=== PATIENT | female | born 1995 | race Caucasian/White ===

== ENCOUNTER 2017-02-17 20:01 | Emergency (ER) | payer OTHER ==
[2017-02-17 20:21] VITALS: BP 114/63; PULSE 71; TEMP 98.1; BMI 21.4
--- NOTE | 2017-02-17 21:16 | PDOC ---
History of Present Illness - General Chief Complaint: Pain Stated Complaint: PAIN Time Seen by Provider: 02/17/17 20:26 History Source: Patient Exam Limitations: No Limitations - History of Present Illness Travel History: No Initial Comments: 02/17/17 21:31 21-year-old female with no medical history presents to the emergency department complaining of left-sided pelvic pain which subsided since arrival to the emergency Department. Pain was described as 3/10 achy nonradiating intermittent discomfort. Patient denies fever, chills, nausea/vomiting, chest pain, shortness of breath, abdominal pains, flank pains, urinary symptoms: Frequency/ urgency/hesitancy, hematuria. Patient denies history of STD. Patient is currently practicing abstinence for the past 8 months. Timing/Duration: reports: gone now Past History - Past Medical History Allergies/Adverse Reactions: Allergies Allergy/AdvReac Type Severity Reaction Status Date / Time No Known Allergies Allergy Verified 02/17/17 20:20 Home Medications: Ambulatory Orders Ibuprofen [Motrin -] 400 mg PO QID PRN 11/21/15 Loratadine 10 mg PO DAILY #10 tablet 11/21/15 Asthma: Yes COPD: No - Immunization History Immunization Up to Date: Yes - Suicide/Smoking/Psychosocial Hx Smoking Status: No Smoking History: Never smoked Number of Cigarettes Smoked Daily: 0 Hx Alcohol Use: No Drug/Substance Use Hx: No Substance Use Type: None Review of Systems - Review of Systems Able to Perform ROS?: Yes Comments:: 02/17/17 21:34 CONSTITUTIONAL: Absent: fever, chills, diaphoresis, generalized weakness, malaise, loss of appetite HEENT: Absent: rhinorrhea, nasal congestion, throat pain, throat swelling, difficulty swallowing, mouth swelling, ear pain, eye pain, visual Changes CARDIOVASCULAR: Absent: chest pain, loss of consciousness, palpitations, irregular heart rate, peripheral edema RESPIRATORY: Absent: cough, shortness of breath, dyspnea with exertion, orthopnea, wheezing, stridor, hemoptysis GASTROINTESTINAL: Absent: abdominal pain, abdominal distension, nausea, vomiting, diarrhea, constipation, melena, hematochezia GENITOURINARY: Left sided pelvic pain /subsided Absent: dysuria, frequency, urgency, hesitancy, hematuria, flank pain, genital pain SKIN: Absent: rash, itching, pallor Is the patient limited Chinese proficient: No *Physical Exam - Vital Signs Last Vital Signs Temp Pulse Resp BP Pulse Ox 98.1 F 71 18 114/63 99 02/17/17 20:18 02/17/17 20:18 02/17/17 20:18 02/17/17 20:18 02/17/17 20:18 - Physical Exam Comments: 02/17/17 21:34 GENERAL: Well developed, well nourished. Awake and alert. No acute distress. HEENT: Normocephalic, atraumatic. PERRLA, EOMI. No conjunctival pallor. Sclera are non- icteric. Moist mucous membranes. Oropharynx is clear. NECK: Supple. Full ROM. No JVD. Carotid pulses 2+ and symmetric, without bruits. No thyromegaly. No lymphadenopathy. CARDIOVASCULAR: Regular rate and rhythm. No murmurs, rubs, or gallops. Distal pulses are 2+ and symmetric. PULMONARY: No evidence of respiratory distress. Lungs clear to auscultation bilaterally. No wheezing, rales or rhonchi. ABDOMINAL: Soft. Non-tender. Non-distended. No rebound or guarding. No organomegaly. Normoactive bowel sounds. MUSCULOSKELETAL Normal range of motion at all joints. No bony deformities or tenderness. No CVA tenderness. EXTREMITIES: No cyanosis. No clubbing. No edema. No calf tenderness. SKIN: Warm and dry. Normal capillary refill. No rashes. No jaundice. Pelvic: External genitalia normal without lesions. Vaginal vault is clear without blood or discharge. Cervix is long and closed. No cervical motion tenderness. Uterus is nontender and normal in size. Adnexa are nontender and without masses. ED Treatment Course - RADIOLOGY Radiograph Interpretation: 02/17/17 23:12 Transvaginal ultrasound: The uterus is normal in size and echogenicity. No uterine masses visualized. The endometrium is normal in thickness measuring 6.7 mm. There are incidental small nabothian cysts. The ovaries are normal in size and appearance, both containing small follicles. Flow is demonstrated to both ovaries on Doppler evaluation *DC/Admit/Observation/Transfer Diagnosis at time of Disposition: Pelvic pain - Discharge Dispostion Disposition: HOME Condition at time of disposition: Stable Admit: No - Referrals Referrals: Lisandro Willis MD [Staff Physician] - - Patient Instructions Additional Instructions: Your pain has subsided on arrival to the emergency department. Please follow-up with the centrifugal casting machine operator and your primary care physician Return back to the emergency department for severe/persistent or worsening symptoms - Post Discharge Activity
[2017-02-17 21:29] LABS: URINE APPEARANCE CLOUDY; URINE BILIRUBIN NEGATIVE (NEGATIVE); URINE BLOOD NEGATIVE (NEGATIVE); URINE COLOR YELLOW; URINE GLUCOSE (UA) NEGATIVE (NEGATIVE); URINE KETONE TRACE (NEGATIVE); URINE NITRITE NEGATIVE (NEGATIVE); URINE PROTEIN NEGATIVE (NEGATIVE)
[2017-02-18 11:28] LABS: URINE LEUK ESTERASE Negative (NEGATIVE)
== END 2017-02-17 23:22 | disposition home or self-care (01) ==
LOC: JER 20:01
DX: R10.2 Pelvic and perineal pain (principal)
CPT/HCPCS: 76830-TC; 81003; 84703; 99282-25

== ENCOUNTER 2018-06-16 17:17 | Emergency (ER) | payer OTHER ==
[2018-06-16 17:20] VITALS: BP 124/74; PULSE 90; TEMP 98.8; BMI 21.4
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
== END 2018-06-16 19:05 | disposition home or self-care (01) ==
LOC: JERFT 17:17
DX: S20.212A Contusion of left front wall of thorax, initial encounter (principal); Y04.2XXA Assault by strike against or bumped into by another person, initial encounter; Y93.89 Activity, other specified; Y92.89 Other specified places as the place of occurrence of the external cause; Y99.8 Other external cause status; Y07.9 Unspecified perpetrator of maltreatment and neglect
CPT/HCPCS: 71046-TC-FY; 71101-TC-LT-FY; 99281-25

== ENCOUNTER 2019-05-04 08:49 | Emergency (ER) | payer OTHER ==
[2019-05-04 08:55] VITALS: BP 114/77; PULSE 65; TEMP 98.2; BMI 20.9
[2019-05-04] MEDS ORDERED: IBUPROFEN 600 MG TABLET (FP) PO ONE ×2 (09:12→09:18)
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
== END 2019-05-04 11:14 | disposition home or self-care (01) ==
LOC: JERFT 08:49
PROC: 2W3QX1Z Immobilization of Right Lower Leg using Splint (ICD-10-PCS; principal; 2019-05-04)
DX: S93.401A Sprain of unspecified ligament of right ankle, initial encounter (principal); X50.1XXA Overexertion from prolonged static or awkward postures, initial encounter; Y93.89 Activity, other specified; Y92.89 Other specified places as the place of occurrence of the external cause; Y99.8 Other external cause status
CPT/HCPCS: 29515; 73610-TC-RT-FY; 99283-25

== ENCOUNTER 2019-10-01 15:09 | Emergency (ER) | payer OTHER ==
[2019-10-01 15:18] VITALS: BP 111/76; PULSE 84; TEMP 98; BMI 21.4
--- NOTE | 2019-10-01 15:22 | PDOC ---
Rapid Medical Evaluation Chief Complaint: Psychiatric Medical Evaluation: Allergies Allergy/AdvReac Type Severity Reaction Status Date / Time No Known Allergies Allergy Verified 05/04/19 08:55 10/01/19 15:16 I have performed a brief in-person evaluation of this patient. The patient presents with a chief complaint of: on and off sob x 2 weeks. Started on prednisone and zoloft yesterday but has not taken. Did use her pump last week w/ no relief. Does not feel like her asthma. No tightness, wheezing, cough, f/c Denies h/o anxiety and denies any recent specific stressors Pertinent physical exam findings:stable, NAD I have ordered the following:nothing The patient will proceed to the ED for further evaluation. Discharge Disposition - Diagnosis SOB (shortness of breath) - Referrals - Patient Instructions - Post Discharge Activity
--- NOTE | 2019-10-01 17:50 | PDOC ---
History of Present Illness - General Chief Complaint: Psychiatric Stated Complaint: PANIC ATTACK Time Seen by Provider: 10/01/19 15:16 History Source: Patient - History of Present Illness Initial Comments: 10/01/19 17:45 25yoF hx of childhood asthma presents w/ c/o recurrent anxiety attacks x 3 weeks. Episodes of feeeling of world-ending anxiety, palpitaitons, sob. OSH ER initiated treatment for "asthma" 3w ago that she has not begun. No steroids. PMD prescribed her sertraline yesterday which she also has not started yet. Had another attack today, so presents to the ED. States she calmed herself down by deep breathing while waiting for EMS. No depression, no Si/HI/AH/Vh. denies PE risk factors, + smokes hookah and notes attacks after smoking,+ social etoh use, denies illicits, no hx of thyroid d/o. 10/01/19 17:47 Past History - Travel History Traveled outside of the country in the last 30 days: No Close contact w/someone who was outside of country & ill: No - Medical History Allergies/Adverse Reactions: Allergies Allergy/AdvReac Type Severity Reaction Status Date / Time No Known Allergies Allergy Verified 10/01/19 15:18 Home Medications: Ambulatory Orders NK [No Known Home Medication] 05/04/19 Asthma: Yes COPD: No - Immunization History Immunization Up to Date: Yes - Psycho-Social/Smoking History Smoking Status: No Smoking History: Never smoked Number of Cigarettes Smoked Daily: 0 - Substance Abuse Hx (Audit-C & DAST Scrn) How often the patient has a drink containing alcohol: Never Score: In Men: 4 or > Positive; In Women: 3 or > Positive: 0 Screen Result (Pos requires Nsg. Audit-10AR): Negative Review of Systems - Review of Systems Able to Perform ROS?: Yes (as per HPI) *Physical Exam - Vital Signs Last Vital Signs Temp Pulse Resp BP Pulse Ox 98 F 84 18 111/76 99 10/01/19 15:12 10/01/19 15:12 10/01/19 15:12 10/01/19 15:12 10/01/19 15:12 - Physical Exam 10/01/19 17:47 NAD, well apperaing no proptosis RRR CTABL soft NTND no edema A&O x 3, gait/balance/speech WNL ED Treatment Course - LABORATORY CBC & Chemistry Diagram: 10/01/19 18:00 10/01/19 18:00 Medical Decision Making - Medical Decision Making 10/01/19 17:49 25yoF w/ likely anxiey attacks. Denies having w/u for these symptoms thusfar. - screening w/ TSH, DDimer, if all negative pt can continue to f/u w/ PMD. Advised NOT to take the steroids from 3w ago, OK to start sertraline under care of PMD. 10/01/19 19:02 labs reviewed and unremrakble. TSH WNL DDimer negative. EKG no e/o arrhythmia potential. CLeared for DC, PMD f/u. Discharge - Discharge Information Problems reviewed: Yes Clinical Impression/Diagnosis: Anxiety Condition: Good Disposition: HOME - Admission No - Follow up/Referral Referrals: Eusebio Wyatt II, DO [Primary Care Provider] - - Patient Discharge Instructions Additional Instructions: Please follow up with your primary doctor within 1 week. Do not take the medications from 3 weeks ago. OK to start the Sertraline prescribed by your doctor. THis is a medicine that needs to be taken every day -- NOT only when you have symptoms. Stress management techniques: exercise, improved diet, guided meditation, etc. - Post Discharge Activity
[2019-10-01 18:22] LABS: BASO % 0.3 % (0-2.0); EOS % 0.3 % (0-4.5); HEMATOCRIT 47.6 % (32.4-45.2); HEMOGLOBIN 16.3 GM/dL (10.7-15.3); LYMPH % 13.4 % (8-40); MCH 31.3 pg (25.7-33.7); MCHC 34.2 g/dl (32.0-36.0); MEAN CELL VOLUME 91.6 fl (80-96); MEAN PLT VOLUME 7.5 fl (7.5-11.1); MONO % 5.9 % (3.8-10.2); NEUT % 80.1 % (42.8-82.8); PLATELET COUNT 405 K/MM3 (134-434); RBC 5.19 M/mm3 (3.60-5.2); RDW 12.6 % (11.6-15.6); WHITE BLOOD COUNT 10.7 K/mm3 (4.0-10.0)
[2019-10-01 18:55] LABS: BLOOD UREA NITROGEN 11.1 mg/dL (7-18); CALCIUM 9.6 mg/dL (8.5-10.1); CREATININE 0.8 mg/dL (0.55-1.3); POTASSIUM 4.7 mmol/L (3.5-5.1)
--- NOTE | 2019-10-02 11:51 | EKG ---
Test Reason : Blood Pressure : / mmHG Vent. Rate : 067 BPM Atrial Rate : 067 BPM P-R Int : 160 ms QRS Dur : 078 ms QT Int : 374 ms P-R-T Axes : 000 050 048 degrees QTc Int : 395 ms NORMAL SINUS RHYTHM NORMAL ECG WHEN COMPARED WITH ECG OF 21-NOV-2015 03:44, NO SIGNIFICANT CHANGE WAS FOUND Confirmed by CHEPE BARRIENTOS MD ([id number]) on 10/02/2019 11:51:22 AM Referred By: Confirmed By:CHEPE BARRIENTOS MD
== END 2019-10-01 20:03 | disposition home or self-care (01) ==
LOC: JER 15:09
DX: F41.9 Anxiety disorder, unspecified (principal)
CPT/HCPCS: 36415; 80048; 84443; 84703; 85025; 85379; 93005; 93010; 99284-25

== ENCOUNTER 2019-10-01 21:42 | Emergency (ER) | payer OTHER ==
[2019-10-01 21:49] VITALS: BP 135/81; PULSE 81; TEMP 98; BMI 21.4
--- NOTE | 2019-10-01 21:50 | PDOC ---
Rapid Medical Evaluation Chief Complaint: Psychiatric Time Seen by Provider: 10/01/19 21:46 Medical Evaluation: Allergies Allergy/AdvReac Type Severity Reaction Status Date / Time No Known Allergies Allergy Verified 10/01/19 15:18 10/01/19 21:48 I have performed a brief in-person evaluation of this patient. CC: worsening SOB at home after discharge. Took zoloft 30 minutes ago PE: Appears anxious. Crying in triage. Orders: nothing Patient to proceed to ED for Further evaluation. Discharge Disposition - Diagnosis Anxiety - Referrals - Patient Instructions - Post Discharge Activity
[2019-10-01] MEDS ORDERED: FAMOTIDINE 10 MG TABLET PO ONE (22:22)
[2019-10-01] MEDS ORDERED: FAMOTIDINE 20 MG TABLET ONE (22:26)
--- NOTE | 2019-10-01 22:31 | PDOC ---
*Physical Exam - Vital Signs Last Vital Signs Temp Pulse Resp BP Pulse Ox 98 F 81 18 135/81 100 10/01/19 21:47 10/01/19 21:47 10/01/19 21:47 10/01/19 21:47 10/01/19 21:47 ED Progress Note - Progress Note Progress Note: 10/01/19 22:23 Pt known to me from visit earlier today. Returns to ER with another episode of feeling SOB at home tonight. Atkinson "unable to relax" and feels like she is "suffocating" when she takes a deep breath. Labs from earlier reviewed, UPT is now resulted (was not resulted at time of DC) and is positive. LMP 09/01/19. Early /hormone changes could explain pt's episodes of sob/anxiety coinciding with hormone changes. pt informed of . Further questioning reveals difficulty tolerating PO over past few weeks because of feeling the food moving "up and down" in her chest associated with sensation of SOB. AF, VSS NAD RRR CTABL, no wheezing soft NTND gait, balance, speech WNL A&O x 3 24yoF w/ 3 weeks of episodes of feeling SOB/palpitaitons that she associates w/ panic. Found to be preg + . Episodes often associated w/ eating or smoking hookah. - start PNV, acid suppression w/ TUMS/pepcid - f/u w/ PMD and OB. - DC. Discharge - Discharge Information Problems reviewed: Yes Clinical Impression/Diagnosis: Anxiety, Condition: Good Disposition: HOME - Admission No - Additional Discharge Information Prescriptions: Famotidine [Pepcid -] 20 mg PO BID #60 tablet 95/Iron Fum/Folic/Dha [ + Dha Combo Pack] 1 each PO DAILY #1 combo..pkg - Follow up/Referral Referrals: Eusebio Wyatt II, DO [Primary Care Provider] - - Patient Discharge Instructions Additional Instructions: Start vitamins and pepcid for stomach acid as prescribed. TUMS chewable tablets as directed on package for stomach acid. You were found to be today. Please call your [facility] doctor and arrange a first visit. Drink plenty of fluids Eat a regular diet. In , it is advisable to avoid: raw fish (sushi), deli meats, unpasturized cheese/dairy, large amounts of caffiene. It is OK to take tylenol, pepcid, TUMS, the albuterol inhaler and sertraline dur ing . - Post Discharge Activity
== END 2019-10-01 23:52 | disposition home or self-care (01) ==
LOC: JER 21:42
DX: O26.899 Other specified pregnancy related conditions, unspecified trimester (principal); F41.9 Anxiety disorder, unspecified; Z3A.00 Weeks of gestation of pregnancy not specified
CPT/HCPCS: 99283-25

== ENCOUNTER 2019-10-27 23:49 | Emergency (ER) | payer OTHER ==
--- NOTE | 2019-10-28 00:01 | PDOC ---
History of Present Illness - General Chief Complaint: Lightheaded Stated Complaint: DIZZY/WEAKNESS Time Seen by Provider: 10/28/19 00:00 History Source: Patient - History of Present Illness Initial Comments: 10/28/19 00:24 24-year-old female reports feeling dizzy, chest tightness today 1 hour prior to arrival. Patient has a history of anxiety disorder reports symptoms are similar to that. patient was seen at this hospital on 09/30 noted to have + urine . Patient reports that October 14 she had a miscarriage, seen at [facility]. LMP 08/26/19 Past History - Medical History Allergies/Adverse Reactions: Allergies Allergy/AdvReac Type Severity Reaction Status Date / Time No Known Allergies Allergy Verified 10/28/19 00:03 Home Medications: Ambulatory Orders Famotidine [Pepcid -] 20 mg PO BID #60 tablet 10/01/19 95/Iron Fum/Folic/Dha [ + Dha Combo Pack] 1 each PO DAILY #1 combo..pkg 10/01/19 Sertraline HCl [Zoloft -] 25 mg PO DAILY 10/01/19 Asthma: Yes COPD: No - Immunization History Immunization Up to Date: Yes - Psycho-Social/Smoking History Smoking Status: No Smoking History: Never smoked Number of Cigarettes Smoked Daily: 0 *Physical Exam - Vital Signs 10/28/19 00:28 Last Vital Signs Temp Pulse Resp BP Pulse Ox 98.4 F 63 20 121/73 99 10/27/19 23:59 10/27/19 23:59 10/27/19 23:59 10/27/19 23:59 10/27/19 23:59 - Physical Exam General Appearance: Yes: Appropriately Dressed Respiratory/Chest: positive: Lungs Clear, Normal Breath Sounds Cardiovascular: positive: Regular Rhythm, Regular Rate Female Pelvic Exam: positive: cervical os closed, normal adnexa, other (white discharge). negative: CMT Gastrointestinal/Abdominal: positive: Normal Bowel Sounds, Soft. negative: Tender Extremity: positive: Normal Capillary Refill, Normal Inspection, Normal Range of Motion Integumentary: positive: Normal Color, Dry, Warm Neurologic: positive: Fully Oriented, Alert Heart Score/ECG Review - ECG Intrepretation Rhythm: Regular Rhythm Comment:: 10/28/19 02:30 sinus bradycardia: 59 10/28/19 02:30 ED Treatment Course - LABORATORY CBC & Chemistry Diagram: 10/28/19 02:00 Medical Decision Making - Medical Decision Making 10/28/19 02:20 Urine : Positive 10/28/19 03:49 beta hcg : 256 cbc : wnl type and screen: A negative 10/28/19 04:29 Called [facility]. As per [facility] patient was never seen there. Cannot confirm RhoGam given. Plan on calling OB for consult regarding RhoGam. Patient eloped while on treatment Discharge - Discharge Information Problems reviewed: Yes Clinical Impression/Diagnosis: Dizziness, Anxiety Condition: Fair Disposition: HOME - Follow up/Referral - Patient Discharge Instructions Patient Printed Discharge Instructions: DI for Dizziness-Nonvertigo Additional Instructions: please follow up with your master automotive technician as soon as possible. - Post Discharge Activity
[2019-10-28 00:03] VITALS: BP 121/73; PULSE 63; TEMP 98.4; BMI 22.4
[2019-10-28] MEDS ORDERED: ACETAMINOPHEN 500 MG TABLET (FP) PO ONE (00:26)
[2019-10-28] MEDS ORDERED: ACETAMINOPHEN 500 MG TABLET (FP) ONE (00:51)
[2019-10-28 02:10] LABS: HCG,QUALITATIVE URINE POSITIVE
[2019-10-28 02:14] LABS: EPI CELLS 17 /uL (0-25.1); HYALINE CASTS 0 /uL (0-3.1); URINE APPEARANCE CLEAR; URINE BACTERIA 288 /uL (0-1359); URINE BILIRUBIN NEGATIVE (NEGATIVE); URINE COLOR YELLOW; URINE GLUCOSE (UA) NEGATIVE (NEGATIVE); URINE KETONE TRACE (NEGATIVE); URINE LEUK ESTERASE NEGATIVE (NEGATIVE); URINE NITRITE NEGATIVE (NEGATIVE); URINE PROTEIN NEGATIVE (NEGATIVE); URINE RBC 1 /uL (0-23.9); URINE UROBILINOGEN 0.2 mg/dL (0.2-1.0); URINE WBC 14 /uL (0-25.8)
[2019-10-28 02:47] LABS: BASO % 0.5 % (0-2.0); EOS % 1.1 % (0-4.5); HEMATOCRIT 39.4 % (32.4-45.2); HEMOGLOBIN 13.6 GM/dL (10.7-15.3); LYMPH % 28.9 % (8-40); MCH 31.1 pg (25.7-33.7); MCHC 34.4 g/dl (32.0-36.0); MEAN CELL VOLUME 90.4 fl (80-96); MEAN PLT VOLUME 7.5 fl (7.5-11.1); MONO % 6.7 % (3.8-10.2); NEUT % 62.8 % (42.8-82.8); PLATELET COUNT 365 K/MM3 (134-434); RBC 4.35 M/mm3 (3.60-5.2); WHITE BLOOD COUNT 9.7 K/mm3 (4.0-10.0)
--- NOTE | 2019-10-28 10:43 | EKG ---
Test Reason : Blood Pressure : / mmHG Vent. Rate : 059 BPM Atrial Rate : 059 BPM P-R Int : 188 ms QRS Dur : 072 ms QT Int : 392 ms P-R-T Axes : 014 050 042 degrees QTc Int : 388 ms POOR DATA QUALITY, INTERPRETATION MAY BE ADVERSELY AFFECTED SINUS BRADYCARDIA OTHERWISE NORMAL ECG WHEN COMPARED WITH ECG OF 01-OCT-2019 17:48, NO SIGNIFICANT CHANGE WAS FOUND Confirmed by Oniel Barros ([id number]) on 10/28/2019 10:43:25 AM Referred By: Confirmed By:Oniel Barros
== END 2019-10-28 04:47 | disposition home or self-care (01) ==
LOC: JER 23:49
DX: R42 Dizziness and giddiness (principal); R41.9 Unspecified symptoms and signs involving cognitive functions and awareness
CPT/HCPCS: 36415; 81003; 84702; 84703; 85025; 86850; 86900; 86901; 93005; 93010; 99284-25

== ENCOUNTER 2019-11-17 23:06 | Emergency (ER) | payer OTHER ==
[2019-11-17 23:11] VITALS: BP 124/73; PULSE 77; TEMP 97.7; BMI 23.2
[2019-11-17] MEDS ORDERED: diphenhydrAMINE HCL 25 MG CAPSULE (FP) PO ONE ×2 (23:33→23:44)
[2019-11-17] MEDS ORDERED: FAMOTIDINE 20 MG TABLET PO ONE (23:33)
--- NOTE | 2019-11-17 23:43 | PDOC ---
*Physical Exam - Vital Signs Last Vital Signs Temp Pulse Resp BP Pulse Ox 97.7 F 77 18 124/73 100 11/17/19 23:07 11/17/19 23:07 11/17/19 23:07 11/17/19 23:07 11/17/19 23:07 Medical Decision Making - Medical Decision Making 11/17/19 23:42 Patient seen by the advanced practice provider under my supervision. Ancillary testing reviewed as necessary. I agree with plan as outlined by the advanced practice provider. Discharge - Discharge Information Problems reviewed: Yes Clinical Impression/Diagnosis: Allergic reaction Qualifiers: Encounter type: initial encounter Qualified Code(s): T78.40XA - Allergy, unspecified, initial encounter Condition: Fair Disposition: HOME - Additional Discharge Information Prescriptions: EPINEPHrine (EPI-PEN 0.3MG) [Epipen 0.3MG -] 0.3 mg IM ASDIR #2 pens - Follow up/Referral Referrals: Eusebio Wyatt II, DO [Primary Care Provider] - Nayan Hunter MD [Staff Physician] - - Patient Discharge Instructions Additional Instructions: You have been given a referral for Dr. Hunter. He has an hot mill shearer who also does allergy testing. Call to schedule an appointment to figure out any potential allergies. You have been given a prescription for an EpiPen. Follow instructions on the box if you were to experience any difficulty breathing, drooling or vocal changes. If you use the EpiPen go to the closest emergency department for reevaluation. It is a smart idea to keep Benadryl and Pepcid in your purse at all times she did begin to experience symptoms you can take these medications. Return to the emergency department for any new or worsening symptoms. Thank you very much for choosing us to provide your emergent healthcare needs. - Post Discharge Activity
--- NOTE | 2019-11-17 23:43 | PDOC ---
History of Present Illness - General Chief Complaint: Allergic Reaction Stated Complaint: ALLERGIC REACTION Time Seen by Provider: 11/17/19 23:27 History Source: Patient Exam Limitations: No Limitations - History of Present Illness Initial Comments: 11/17/19 23:41 HISTORY OF PRESENT ILLNESS: 24-year-old woman with past medical history of anxiety presents emergency department for evaluation of throat irritation and itching after eating seafood for dinner. Patient reports she has eaten seafood many times but is never had any reaction. She denies any difficulty swallowing, voice changes or difficulty breathing. Patient has not taken any medication prior to arrival in the emergency department. No recent travel or sick contacts. PAST MEDICAL HISTORY: See HPI SURGICAL HISTORY: Denies ALLERGIES: No known drug allergies REVIEW OF SYSTEMS General/Constitutional: Denies fever or chills. Denies weakness, weight change. HEENT: See HPI Cardiovascular: Denies chest pain or shortness of breath. Respiratory: Denies cough, wheezing, or hemoptysis. Gastrointestinal: Denies nausea, vomiting, diarrhea or constipation. Denies rectal bleeding. Genitourinary: Denies dysuria, frequency, or change in urination. Musculoskeletal: Denies joint or muscle swelling or pain. Denies neck or back pain. Skin and breasts: Denies rash or easy bruising. Neurologic: Denies headache, vertigo, loss of consciousness, or loss of sensation. Psychiatric: Denies depression or anxiety. Endocrine: Denies increased thirst. Denies abnormal weight change. Hematologic/Lymphatic: Denies anemia, easy bleeding, or history of blood clots. Allergic/Immunologic: Denies hives or skin allergy. Denies latex allergy. PHYSICAL EXAM General Appearance: Well-appearing, appropriately dressed. No apparent distress, no intoxication. HEENT: EOMI, PERRLA, normal ENT inspection, normal voice, TMs normal, pharynx normal. No conjunctival pallor. No photophobia, scleral icterus. Neck: Supple. Trachea midline. No stridor, tenderness, rigidity, carotid bruit, lymphadenopathy, or thyromegaly. Respiratory/Chest: Lungs CTAB. No shortness of breath, chest tenderness, respiratory distress, accessory muscle use. No crackles, rales, rhonchi, stridor, wheezing, dullness Cardiovascular: RRR. S1, S2. No JVD, murmur, bradycardia, tachycardia. Vascular Pulses: Dorsalis-Pedis (R): 2+, Dorsalis-Pedis (L): 2+ Gastrointestinal/Abdominal: Normal bowel sounds. Abdomen soft, non-distended. No tenderness or rebound tenderness. No organomegaly, pulsatile mass, guarding, hernia, hepatomegaly, splenomegaly. Integumentary: Appropriate color, dry, warm. No cyanosis, erythema, jaundice or rash Past History - Medical History Allergies/Adverse Reactions: Allergies Allergy/AdvReac Type Severity Reaction Status Date / Time No Known Allergies Allergy Verified 11/17/19 23:10 Home Medications: Ambulatory Orders Famotidine [Pepcid -] 20 mg PO BID #60 tablet 10/01/19 95/Iron Fum/Folic/Dha [ + Dha Combo Pack] 1 each PO DAILY #1 combo..pkg 10/01/19 Sertraline HCl [Zoloft -] 25 mg PO DAILY 10/01/19 EPINEPHrine (EPI-PEN 0.3MG) [Epipen 0.3MG -] 0.3 mg IM ASDIR #2 pens 11/18/19 Asthma: Yes COPD: No - Reproductive History Is Patient Now?: No - Immunization History Immunization Up to Date: Yes - Psycho-Social/Smoking History Smoking Status: No Smoking History: Never smoked Have you smoked in the past 12 months: Yes Number of Cigarettes Smoked Daily: 0 - Substance Abuse Hx (Audit-C & DAST Scrn) How often the patient has a drink containing alcohol: Never Score: In Men: 4 or > Positive; In Women: 3 or > Positive: 0 Screen Result (Pos requires Nsg. Audit-10AR): Negative In the last yr the pt used illegal drug/Rx for NonMed reason: No Score: Yes response is considered Positive: 0 Screen Result (Positive result requires Nsg. DAST-10): Negative *Physical Exam - Vital Signs Last Vital Signs Temp Pulse Resp BP Pulse Ox 97.7 F 77 18 124/73 100 11/17/19 23:07 11/17/19 23:07 11/17/19 23:07 11/17/19 23:07 11/17/19 23:07 Medical Decision Making - Medical Decision Making 11/17/19 23:42 A/P: 24-year-old woman with throat itching after eating shellfish for dinner Uvula is midline with normal appearance No sublingual edema presents No oral edema noted No stridor auscultated Lungs clear to auscultation bilaterally No vomiting. Benadryl 50 mg orally now Pepcid 20 mg orally now Will defer steroids at this time but low threshold to administer if condition worsens. Reassess 11/18/19 00:53 Patient reports relief of symptoms after receiving Pepcid and Benadryl. I will defer additional medication at this time. We will discharge patient home with ENT follow-up and prescription for an EpiPen. Patient has been instructed to keep Pepcid and Benadryl in her purse at all times and use it as needed. I discussed the physical exam findings, ancillary test results and final diagnoses with the patient. I answered all of the patient's questions. The patient was satisfied with the care received and felt comfortable with the discharge plan and treatment plan. The patient will call their primary care ph ysician within 24 hours to arrange follow-up and will return to the Emergency Department with any new, persistent or worsening symptoms. Portions of this note have been documented using voice recognition software. As a result, errors may occur in the surgeon assistant process. Effort has been made to correct all grammatical and surgeon assistant error, but some may have been missed which may produce sporadic inaccurate surgeon assistant or nonsensical phrases. Discharge - Discharge Information Problems reviewed: Yes Clinical Impression/Diagnosis: Allergic reaction Qualifiers: Encounter type: initial encounter Qualified Code(s): T78.40XA - Allergy, unspecified, initial encounter Condition: Fair Disposition: HOME - Admission No - Additional Discharge Information Prescriptions: EPINEPHrine (EPI-PEN 0.3MG) [Epipen 0.3MG -] 0.3 mg IM ASDIR #2 pens - Follow up/Referral Referrals: Eusebio Wyatt II, DO [Primary Care Provider] - Nayan Hunter MD [Staff Physician] - - Patient Discharge Instructions Additional Instructions: You have been given a referral for Dr. Hunter. He has an search marketing coordinator who also does allergy testing. Call to schedule an appointment to figure out any potential allergies. You have been given a prescription for an EpiPen. Follow instructions on the box if you were to experience any difficulty breathing, drooling or vocal changes. If you use the EpiPen go to the closest emergency department for reevaluation. It is a smart idea to keep Benadryl and Pepcid in your purse at all times she did begin to experience symptoms you can take these medications. Return to the emergency department for any new or worsening symptoms. Thank you very much for choosing us to provide your emergent healthcare needs. - Post Discharge Activity
[2019-11-17] MEDS ORDERED: FAMOTIDINE 20 MG TABLET ONE (23:45)
== END 2019-11-18 01:07 | disposition home or self-care (01) ==
LOC: JER 23:06
DX: T78.40XA Allergy, unspecified, initial encounter (principal)
CPT/HCPCS: 99283-25

== ENCOUNTER 2019-11-18 02:23 | Emergency (ER) | payer OTHER ==
[2019-11-18] MEDS ORDERED: methylPREDNISolone NA SUCC 125 MG/2 ML VIAL IVPUSH ONE (02:31)
[2019-11-18] MEDS ORDERED: SODIUM CHLORIDE 1,000 ML IV STA (02:32)
--- NOTE | 2019-11-18 02:33 | PDOC ---
History of Present Illness - General Stated Complaint: ALLERGIC REACTION Time Seen by Provider: 11/18/19 02:31 History Source: Patient, Old Records Exam Limitations: No Limitations - History of Present Illness Initial Comments: 11/18/19 02:32 HISTORY OF PRESENT ILLNESS: 24-year-old woman with past medical history of anxiety presents emergency department for evaluation of throat irritation and itching after eating seafood for dinner. Patient reports she has eaten seafood many times but is never had any reaction. She denies any difficulty swallowing, voice changes or difficulty breathing. Patient was just discharged from the emergency department and reports her symptoms have returned. No recent travel or sick contacts. PAST MEDICAL HISTORY: See HPI SURGICAL HISTORY: Denies ALLERGIES: No known drug allergies REVIEW OF SYSTEMS General/Constitutional: Denies fever or chills. Denies weakness, weight change. HEENT: See HPI Cardiovascular: Denies chest pain or shortness of breath. Respiratory: Denies cough, wheezing, or hemoptysis. Gastrointestinal: Denies nausea, vomiting, diarrhea or constipation. Denies rectal bleeding. Genitourinary: Denies dysuria, frequency, or change in urination. Musculoskeletal: Denies joint or muscle swelling or pain. Denies neck or back pain. Skin and breasts: Denies rash or easy bruising. Neurologic: Denies headache, vertigo, loss of consciousness, or loss of sensation. Psychiatric: Denies depression or anxiety. Endocrine: Denies increased thirst. Denies abnormal weight change. Hematologic/Lymphatic: Denies anemia, easy bleeding, or history of blood clots. Allergic/Immunologic: Denies hives or skin allergy. Denies latex allergy. PHYSICAL EXAM General Appearance: Well-appearing, appropriately dressed. No apparent distress, no intoxication. HEENT: EOMI, PERRLA, normal ENT inspection, normal voice, TMs normal, pharynx normal. No conjunctival pallor. No photophobia, scleral icterus. Neck: Supple. Trachea midline. No stridor, tenderness, rigidity, carotid bruit, lymphadenopathy, or thyromegaly. Respiratory/Chest: Lungs CTAB. No shortness of breath, chest tenderness, respiratory distress, accessory muscle use. No crackles, rales, rhonchi, stridor, wheezing, dullness Cardiovascular: RRR. S1, S2. No JVD, murmur, bradycardia, tachycardia. Vascular Pulses: Dorsalis-Pedis (R): 2+, Dorsalis-Pedis (L): 2+ Gastrointestinal/Abdominal: Normal bowel sounds. Abdomen soft, non-distended. No tenderness or rebound tenderness. No organomegaly, pulsatile mass, guarding, hernia, hepatomegaly, splenomegaly. Integumentary: Appropriate color, dry, warm. No cyanosis, erythema, jaundice or rash Past History - Medical History Allergies/Adverse Reactions: Allergies Allergy/AdvReac Type Severity Reaction Status Date / Time No Known Allergies Allergy Verified 11/18/19 02:49 Home Medications: Ambulatory Orders Famotidine [Pepcid -] 20 mg PO BID #60 tablet 10/01/19 95/Iron Fum/Folic/Dha [ + Dha Combo Pack] 1 each PO DAILY #1 combo..pkg 10/01/19 Sertraline HCl [Zoloft -] 25 mg PO DAILY 10/01/19 EPINEPHrine (EPI-PEN 0.3MG) [Epipen 0.3MG -] 0.3 mg IM ASDIR #2 pens 11/18/19 Asthma: Yes COPD: No - Immunization History Immunization Up to Date: Yes - Psycho-Social/Smoking History Smoking Status: No Smoking History: Never smoked Have you smoked in the past 12 months: Yes Number of Cigarettes Smoked Daily: 0 Medical Decision Making - Medical Decision Making 11/18/19 02:33 A/P: 24-year-old woman with throat itching after eating shellfish for dinner Uvula is midline with normal appearance No sublingual edema presents No oral edema noted No stridor auscultated Lungs clear to auscultation bilaterally No vomiting. Rapid strep testing Solu-Medrol 125 mg IV push Normal saline 1 L IV bolus Monitor for the next 6 hours. 11/18/19 05:48 Strep testing is negative. We will continue to monitor. 11/18/19 06:46 Patient reports he feels better. We have monitored the patient for 7 hours total throughout the night I feel it is safe to discharge home. I discussed the physical exam findings, ancillary test results and final diagnoses with the patient. I answered all of the patient's questions. The patient was satisfied with the care received and felt comfortable with the discharge plan and treatment plan. The patient will call their primary care physician within 24 hours to arrange follow-up and will return to the Emergency Department with any new, persistent or worsening symptoms. Portions of this note have been documented using voice recognition software. As a result, errors may occur in the mergers and acquisitions banker process. Effort has been made to correct all grammatical and mergers and acquisitions banker error, but some may have been missed which may produce sporadic inaccurate mergers and acquisitions banker or nonsensical phrases. Discharge - Discharge Information Problems reviewed: Yes Clinical Impression/Diagnosis: Allergic reaction Qualifiers: Encounter type: subsequent encounter Qualified Code(s): T78.40XD - Allergy, unspecified, subsequent encounter Condition: Fair Disposition: HOME - Admission No - Follow up/Referral Referrals: Eusebio Wyatt II, DO [Primary Care Provider] - - Patient Discharge Instructions Additional Instructions: Continue all previous discharge instructions. Thank you very much for choosing us provide your emergent healthcare needs. - Post Discharge Activity
--- NOTE | 2019-11-18 02:36 | PDOC ---
Medical Decision Making - Medical Decision Making 11/18/19 02:36 Patient seen by the advanced practice provider under my supervision. Ancillary testing reviewed as necessary. I agree with plan as outlined by the advanced practice provider. Discharge - Discharge Information Problems reviewed: Yes Clinical Impression/Diagnosis: Allergic reaction - Follow up/Referral Referrals: Eusebio Wyatt II, DO [Primary Care Provider] - - Patient Discharge Instructions - Post Discharge Activity
[2019-11-18 02:49] VITALS: BMI 22.4
[2019-11-18] MEDS ORDERED: methylPREDNISolone NA SUCC 125 MG/2 ML VIAL ONE (03:13)
[2019-11-18 07:18] VITALS: BP 116/67; PULSE 73; TEMP 98
== END 2019-11-18 07:10 | disposition home or self-care (01) ==
LOC: JER 02:23
PROC: 3E033GC Introduction of Other Therapeutic Substance into Peripheral Vein, Percutaneous Approach (ICD-10-PCS; principal; 2019-11-18)
PROC: 3E0337Z Introduction of Electrolytic and Water Balance Substance into Peripheral Vein, Percutaneous Approach (ICD-10-PCS; 2019-11-18)
DX: T78.40XA Allergy, unspecified, initial encounter (principal)
CPT/HCPCS: 87070; 87880; 99284-25

== ENCOUNTER 2019-11-18 15:27 | Emergency (ER) | payer OTHER ==
[2019-11-18 15:38] VITALS: BP 124/64; PULSE 88; BMI 23.2
--- NOTE | 2019-11-18 15:39 | PDOC ---
Rapid Medical Evaluation Time Seen by Provider: 11/18/19 15:34 Medical Evaluation: Allergies Allergy/AdvReac Type Severity Reaction Status Date / Time No Known Allergies Allergy Verified 11/18/19 02:49 11/18/19 15:35 HPI: 24 year old female seen and evaluated here yesterday complaining of sore throat and pain with swallowing. Tolerating PO fluids PE: No tonsillar edema or exudate, mild LAD No rash CTA RRR A/P: Differed to provider Pt to precede to ED for further evaluation and treatment.
--- NOTE | 2019-11-18 16:39 | PDOC ---
History of Present Illness - General Chief Complaint: Sore Throat Stated Complaint: SORE THROAT Time Seen by Provider: 11/18/19 15:34 - History of Present Illness Initial Comments: 11/18/19 16:37 24-year-old female without comorbidities presents for evaluation of sore throat. Past History - Medical History Allergies/Adverse Reactions: Allergies Allergy/AdvReac Type Severity Reaction Status Date / Time No Known Allergies Allergy Verified 11/18/19 15:39 Home Medications: Ambulatory Orders Famotidine [Pepcid -] 20 mg PO BID #60 tablet 10/01/19 95/Iron Fum/Folic/Dha [ + Dha Combo Pack] 1 each PO DAILY #1 combo..pkg 10/01/19 Sertraline HCl [Zoloft -] 25 mg PO DAILY 10/01/19 EPINEPHrine (EPI-PEN 0.3MG) [Epipen 0.3MG -] 0.3 mg IM ASDIR #2 pens 11/18/19 Asthma: Yes COPD: No - Reproductive History Is Patient Now?: No - Immunization History Immunization Up to Date: Yes - Psycho-Social/Smoking History Smoking Status: No Smoking History: Never smoked Have you smoked in the past 12 months: Yes Number of Cigarettes Smoked Daily: 0 Review of Systems - Review of Systems Constitutional: No: Fever HEENTM: Yes: Throat Pain *Physical Exam - Vital Signs Last Vital Signs Temp Pulse Resp BP Pulse Ox 88 18 124/64 98 11/18/19 15:33 11/18/19 15:33 11/18/19 15:33 11/18/19 15:33 - Physical Exam 11/18/19 16:37 GENERAL: The patient is awake, alert, and fully oriented, in no acute distress. HEAD: Normal with no signs of trauma. EYES: sclera anicteric, conjunctiva clear. ENT: Ears normal tympanic membranes normal oropharynx clear uvula midline NECK: Normal range of motion LUNGS: Breath sounds equal, clear to auscultation bilaterally. No wheezes, and no crackles. HEART: S1 and S2 without murmur, rub or gallop. ABDOMEN: Soft, nontender, normoactive bowel sounds. No guarding, no rebound. No masses. EXTREMITIES: Normal range of motion, no edema. No clubbing or cyanosis. No cords, erythema, or tenderness. NEUROLOGICAL: Cranial nerves II through XII grossly intact. PSYCH: Normal mood, normal affect. SKIN: Warm, Dry, normal turgor, no rashes or lesions noted. Medical Decision Making - Medical Decision Making 11/18/19 16:37 Benign examination after further evaluation the patient was seen last night for the same thing. She states she was never told her strep was negative. Most likely allergic pharyngitis follow-up with primary care physician nothing to do from an emergent standpoint. I have reviewed the pathophysiology with the patient. They are in agreement with the treatment plan all questions were answered to their satisfaction. Understanding for follow-up without fail was also conveyed to the patient. Again they are in agreement. Discharge - Discharge Information Problems reviewed: Yes Clinical Impression/Diagnosis: Pharyngitis Condition: Stable Disposition: HOME - Admission No - Follow up/Referral Referrals: Eusebio Wyatt II, DO [Primary Care Provider] - - Patient Discharge Instructions Additional Instructions: Your strep was negative. You may take an antihistamine [id number] such as Claritin or Zyrtec. Return to the emergency room for worsening symptoms and without fail follow-up with your primary care physician in 1 to 2 days for further evaluation and treatment options. - Post Discharge Activity
== END 2019-11-18 16:56 | disposition home or self-care (01) ==
LOC: JERFT 15:27
DX: J02.9 Acute pharyngitis, unspecified (principal)
CPT/HCPCS: 87070; 87077; 87880; 99283-25

== ENCOUNTER 2019-11-24 20:21 | Emergency (ER) | payer OTHER ==
--- NOTE | 2019-11-24 20:25 | PDOC ---
Rapid Medical Evaluation Chief Complaint: Sore Throat Time Seen by Provider: 11/24/19 20:23 Medical Evaluation: Allergies Allergy/AdvReac Type Severity Reaction Status Date / Time No Known Allergies Allergy Verified 11/20/19 23:58 11/24/19 20:23 CC: itchy dry throat with soreness, mild headache and left ear discomfort, no dental issues, no fever, no known covid exposure Exam: vss, no erythema or exudate to post soft palate Plan: FT Discharge Disposition - Diagnosis Sore throat - Referrals - Patient Instructions - Post Discharge Activity
[2019-11-24 20:26] VITALS: BP 115/70; PULSE 62; TEMP 98; BMI 22.2
--- NOTE | 2019-11-24 20:40 | PDOC ---
History of Present Illness - General Chief Complaint: Sore Throat Stated Complaint: THROAT PAIN Time Seen by Provider: 11/24/19 20:23 - History of Present Illness Initial Comments: 11/24/19 20:39 24-year-old female presents for evaluation of sore throat and right ear pain x2 hours no systemic symptoms Past History - Medical History Allergies/Adverse Reactions: Allergies Allergy/AdvReac Type Severity Reaction Status Date / Time No Known Allergies Allergy Verified 11/24/19 20:25 Home Medications: Ambulatory Orders Famotidine [Pepcid -] 20 mg PO BID #60 tablet 10/01/19 95/Iron Fum/Folic/Dha [ + Dha Combo Pack] 1 each PO DAILY #1 combo..pkg 10/01/19 Sertraline HCl [Zoloft -] 25 mg PO DAILY 10/01/19 EPINEPHrine (EPI-PEN 0.3MG) [Epipen 0.3MG -] 0.3 mg IM ASDIR #2 pens 11/18/19 Cetirizine HCl [Zyrtec -] 10 mg PO DAILY #30 tablet 11/24/19 Asthma: Yes COPD: No - Reproductive History Is Patient Now?: No - Immunization History Immunization Up to Date: Yes - Psycho-Social/Smoking History Smoking Status: No Smoking History: Never smoked Have you smoked in the past 12 months: No Number of Cigarettes Smoked Daily: 0 - Substance Abuse Hx (Audit-C & DAST Scrn) How often the patient has a drink containing alcohol: Monthly or less Score: In Men: 4 or > Positive; In Women: 3 or > Positive: 1 Screen Result (Pos requires Nsg. Audit-10AR): Negative Review of Systems - Review of Systems Constitutional: No: Fever HEENTM: Yes: Ear Pain, Throat Pain *Physical Exam - Vital Signs Last Vital Signs Temp Pulse Resp BP Pulse Ox 98 F 62 18 115/70 99 11/24/19 20:23 11/24/19 20:23 11/24/19 20:23 11/24/19 20:23 11/24/19 20:23 - Physical Exam 11/24/19 20:39 GENERAL: The patient is awake, alert, and fully oriented, in no acute distress. HEAD: Normal with no signs of trauma. EYES: sclera anicteric, conjunctiva clear. ENT: Ears normal tympanic membranes normal oropharynx clear uvula midline NECK: Normal range of motion EXTREMITIES: Normal range of motion, no edema. No clubbing or cyanosis. No cords, erythema, or tenderness. NEUROLOGICAL: Cranial nerves II through XII grossly intact. PSYCH: Normal mood, normal affect. SKIN: Warm, Dry, normal turgor, no rashes or lesions noted. Medical Decision Making - Medical Decision Making 11/24/19 20:39 Could be seasonal allergies versus early onset infection Zyrtec for now I have reviewed the pathophysiology with the patient. They are in agreement with the treatment plan all questions were answered to their satisfaction. Understanding for follow-up without fail was also conveyed to the patient. Again they are in agreement. Discharge - Discharge Information Problems reviewed: Yes Clinical Impression/Diagnosis: Sore throat Condition: Stable Disposition: HOME - Admission No - Additional Discharge Information Prescriptions: Cetirizine HCl [Zyrtec -] 10 mg PO DAILY #30 tablet - Follow up/Referral Referrals: Eusebio Wyatt II, DO [Primary Care Provider] - - Patient Discharge Instructions Additional Instructions: Please take Zyrtec as directed and return to the emergency room should symptoms worsen. Follow-up with your primary care physician in 1 to 2 days without fail and return to the emergency room should symptoms worsen. - Post Discharge Activity
== END 2019-11-24 21:00 | disposition home or self-care (01) ==
LOC: JERFT 20:21
DX: J02.9 Acute pharyngitis, unspecified (principal)
CPT/HCPCS: 99282-25

== ENCOUNTER 2019-12-01 18:57 | Emergency (ER) | payer OTHER ==
[2019-12-01 19:06] VITALS: BMI 21.8
--- NOTE | 2019-12-01 19:56 | PDOC ---
History of Present Illness - General Chief Complaint: Asthma Stated Complaint: ANXIETY Time Seen by Provider: 12/01/19 19:56 History Source: Patient - History of Present Illness Initial Comments: 12/01/19 20:05 24-year-old female, with history of asthma complaining of chest tightness and cough and wheezing for the last 2 days. Patient reports that she has a albuterol inhaler and has not used it. Denies shortness of breath, fever/chills, nausea, vomiting, chest pain. denies history of intubation or hospitalization Denies recent travel, exposure to COVID-19 Past History - Past History Allergies/Adverse Reactions: Allergies No Known Allergies Allergy (Verified 12/02/19 00:43) Home Medications: Ambulatory Orders Albuterol Sulfate Inhaler - [Ventolin HFA Inhaler -] 1 - 2 inh PO Q4H PRN #1 inhaler 12/01/19 predniSONE [Deltasone -] 40 mg PO DAILY #6 tablet 12/01/19 Immunization Status Up to Date: Yes - Social History Smoking History: No Smoking Status: Current some day smoker Number of Cigarettes Smoked Per Day: 0 Drug Use: none Review of Systems - Review of Systems Able to Perform ROS?: Yes Is the patient limited Azeri proficient: No Constitutional: No: Symptoms Reported, See HPI, Chills, Diaphoresis, Fever, Loss of Appetite, Malaise, Night Sweats, Weakness, Weight Stable, Unintentional Wgt. Loss, Unexplained wgt Loss, Other HEENTM: No: Symptoms Reported, See HPI, Eye Pain, Blurred Vision, Tearing, Recent change in vision, Double Vision, Cataracts, Ear Pain, Ocular Prothesis, Ear Discharge, Nose Pain, Nose Congestion, Tinnitus, Nose Bleeding, Hearing Loss, Throat Pain, Throat Swelling, Mouth Pain, Dental Problems, Difficulty Swallowing, Mouth Swelling, Other Respiratory: Yes: Cough, Wheezing. No: SOB with Exertion, SOB at Rest, Productive cough Cardiac (ROS): Yes: Chest Tightness. No: Symptoms Reported, See HPI, Chest Pain, Edema, Irregular Heart Rate, Lightheadedness, Palpitations, Syncope, Other ABD/GI: No: Symptoms Reported, See HPI, Abdominal Distended, Abd. Pain w/ defecation, Blood Streaked Bowels, Constipated, Diarrhea, Difficulty Swallowing, Nausea, Poor Appetite, Poor Fluid Intake, Rectal Bleeding, Vomiting, Indigestion, Abdominal cramping, Tarry Stools, Other *Physical Exam - Vital Signs Last Vital Signs Temp Pulse Resp BP Pulse Ox 97.8 F 66 16 106/65 98 12/01/19 19:02 12/01/19 19:02 12/01/19 19:02 12/01/19 19:02 12/01/19 19:02 - Physical Exam General Appearance: Yes: Apparent Distress HEENT: positive: Normal ENT Inspection Respiratory/Chest: positive: Normal Breath Sounds, Rhonchi Cardiovascular: positive: Regular Rhythm, Regular Rate Gastrointestinal/Abdominal: positive: Normal Bowel Sounds, Soft. negative: Tender Musculoskeletal: positive: Normal Inspection Integumentary: positive: Normal Color, Dry, Warm Neurologic: positive: Fully Oriented, Alert, Normal Mood/Affect ED Progress Note - Progress Note Progress Note: 12/01/19 20:14 A: asthma P: albuterol inhaler. patient her own. slight improvement. repeat V/s WNL chest xray: negative prednisone Discharge - Discharge Information Problems reviewed: Yes Clinical Impression/Diagnosis: Asthma Qualifiers: Asthma severity: mild Asthma persistence: intermittent Asthma complication type: uncomplicated Qualified Code(s): J45.20 - Mild intermittent asthma, uncomplicated Condition: Stable Disposition: HOME - Additional Discharge Information Prescriptions: predniSONE [Deltasone -] 40 mg PO DAILY #6 tablet Albuterol Sulfate Inhaler - [Ventolin HFA Inhaler -] 1 - 2 inh PO Q4H PRN #1 inhaler PRN Reason: Asthma - Follow up/Referral Referrals: Eusebio Wyatt II, DO [Primary Care Provider] - - Patient Discharge Instructions Patient Printed Discharge Instructions: Asthma -- Adult Additional Instructions: Give albuterol every 4 hours as needed for wheezing and cough. Follow-up with your doctor as soon as possible Return to the emergency room for any worsening symptom - Post Discharge Activity Work/Back to School Note: Back to Work
[2019-12-01 20:19] VITALS: BP 122/75; PULSE 73; TEMP 98.5
[2019-12-01] MEDS ORDERED: predniSONE 20 MG TABLET (UD) ONE (20:43)
[2019-12-01] MEDS ORDERED: predniSONE 20 MG TABLET (UD) PO ONE (20:43)
== END 2019-12-01 20:47 | disposition home or self-care (01) ==
LOC: JERFT 18:57 → JER 18:57 → JERFT 20:47
DX: J45.20 Mild intermittent asthma, uncomplicated (principal)
CPT/HCPCS: 71046-TC-FY; 99283-25

== ENCOUNTER 2019-12-02 00:33 | Emergency (ER) | payer OTHER ==
[2019-12-02 00:58] VITALS: BP 117/80; PULSE 87; TEMP 98.6; BMI 22.2
--- NOTE | 2019-12-02 01:23 | PDOC ---
History of Present Illness - General Chief Complaint: Allergic Reaction Stated Complaint: R/O ALLERGIC RX Time Seen by Provider: 12/02/19 00:36 History Source: Patient - History of Present Illness Initial Comments: 12/02/19 01:16 24-year-old female seen by this provider earlier for asthma patient reports that 1 hour after taking prednisone patient noted increased breathing and cramping of hands and feet. Patient reports that symptoms have resolved however concerned this is an allergic reaction to the prednisone. PMHX: anxiety prescribed antidepressants currently not taking them Asthma currently not taking albuterol prn Past History - Medical History Allergies/Adverse Reactions: Allergies Allergy/AdvReac Type Severity Reaction Status Date / Time No Known Allergies Allergy Verified 12/02/19 00:43 Home Medications: Ambulatory Orders Albuterol Sulfate Inhaler - [Ventolin HFA Inhaler -] 1 - 2 inh PO Q4H PRN #1 inhaler 12/01/19 predniSONE [Deltasone -] 40 mg PO DAILY #6 tablet 12/01/19 Asthma: Yes COPD: No - Reproductive History Is Patient Now?: No - Immunization History Immunization Up to Date: Yes - Psycho-Social/Smoking History Smoking Status: No Smoking History: Never smoked Have you smoked in the past 12 months: No Number of Cigarettes Smoked Daily: 0 Information on smoking cessation initiated: No - Substance Abuse Hx (Audit-C & DAST Scrn) How often the patient has a drink containing alcohol: Never Score: In Men: 4 or > Positive; In Women: 3 or > Positive: 0 Screen Result (Pos requires Nsg. Audit-10AR): Negative In the last yr the pt used illegal drug/Rx for NonMed reason: No Score: Yes response is considered Positive: 0 Screen Result (Positive result requires Nsg. DAST-10): Negative Review of Systems - Review of Systems Able to Perform ROS?: Yes Is the patient limited Estonian proficient: No Constitutional: No: Symptoms Reported, See HPI, Chills, Diaphoresis, Fever, Loss of Appetite, Malaise, Night Sweats, Weakness, Weight Stable, Unintentional Wgt. Loss, Unexplained wgt Loss, Other HEENTM: No: Symptoms Reported, See HPI, Eye Pain, Blurred Vision, Tearing, Recent change in vision, Double Vision, Cataracts, Ear Pain, Ocular Prothesis, Ear Discharge, Nose Pain, Nose Congestion, Tinnitus, Nose Bleeding, Hearing Loss, Throat Pain, Throat Swelling, Mouth Pain, Dental Problems, Difficulty Swallowing, Mouth Swelling, Other Musculoskeletal: Yes: Joint Stiffness *Physical Exam - Vital Signs Last Vital Signs Temp Pulse Resp BP Pulse Ox 98.6 F 87 16 117/80 100 12/02/19 00:42 12/02/19 00:42 12/02/19 00:42 12/02/19 00:42 12/02/19 00:45 - Physical Exam General Appearance: Yes: Appropriately Dressed Respiratory/Chest: positive: Lungs Clear, Normal Breath Sounds. negative: Respiratory Distress, Accessory Muscle Use, Labored Respiration, Rapid RR Cardiovascular: positive: Regular Rhythm, Regular Rate Musculoskeletal: positive: Normal Inspection Extremity: positive: Normal Capillary Refill, Normal Inspection, Normal Range of Motion Integumentary: positive: Normal Color, Dry, Warm Neurologic: positive: Fully Oriented, Alert, Normal Mood/Affect ED Progress Note - Progress Note Progress Note: A: anxiety P: supportive care. referred to [facility] help line. patient also to follow up pcp. no SI/ No HI Discharge - Discharge Information Problems reviewed: Yes Clinical Impression/Diagnosis: Anxiety Condition: Stable Disposition: HOME - Follow up/Referral Referrals: Eusebio Wyatt II, DO [Primary Care Provider] - - Patient Discharge Instructions Patient Printed Discharge Instructions: DI for Anxiety -- Adult Additional Instructions: Please follow-up with your primary doctor soon as possible CAll Reach Out - Post Discharge Activity
== END 2019-12-02 01:30 | disposition home or self-care (01) ==
LOC: JER 00:33
DX: F41.0 Panic disorder [episodic paroxysmal anxiety] (principal)
CPT/HCPCS: 99283-25

== ENCOUNTER 2020-05-11 10:25 | Emergency (ER) | payer OTHER ==
[2020-05-11 10:37] VITALS: BP 120/89; PULSE 79; TEMP 98; BMI 22.2
[2020-05-11 12:22] LABS: HCG,QUALITATIVE URINE Negative
[2020-05-11 12:29] LABS: EPI CELLS >36 /uL (0-25.1); HYALINE CASTS 6 /uL (0-3.1); PH,URINE 6.5 (5.0-8.0); URINE APPEARANCE TURBID; URINE BACTERIA >9,000 /uL (0-1359); URINE BILIRUBIN NEGATIVE (NEGATIVE); URINE COLOR YELLOW; URINE GLUCOSE (UA) NEGATIVE (NEGATIVE); URINE KETONE TRACE (NEGATIVE); URINE LEUK ESTERASE 3+ (NEGATIVE); URINE NITRITE POSITIVE (NEGATIVE); URINE PROTEIN 3+ (NEGATIVE); URINE WBC 7181 /uL (0-25.8)
== END 2020-05-11 12:39 | disposition home or self-care (01) ==
LOC: JERFT 10:25
DX: N30.00 Acute cystitis without hematuria (principal)
CPT/HCPCS: 81003; 84703; 87086; 87186; 99284-25

== ENCOUNTER 2023-02-26 04:08 | Day surgery (SDC) | payer OTHER ==
[2023-02-23 14:47] VITALS: BMI 21.4
[2023-02-26] MEDS ORDERED: KETOROLAC TROMETHAMINE 30 MG/1 ML VIAL ONE (07:47)
[2023-02-26] MEDS ORDERED: FENTANYL CITRATE/PF 50 MCG/ML VIAL ONE ×2 (07:47→09:29)
[2023-02-26] MEDS ORDERED: LIDOCAINE HCL/PF 2% SDV 5ML VIAL ONE (07:47)
[2023-02-26] MEDS ORDERED: ONDANSETRON 4 MG/2 ML VIAL ONE (07:47)
[2023-02-26] MEDS ORDERED: PROPOFOL 40 ML ONE (07:47)
[2023-02-26] MEDS ORDERED: SUCCINYLCHOLINE CHLORIDE 200 MG/10 ML SYRINGE ONE (07:48)
[2023-02-26] MEDS ORDERED: MIDAZOLAM HCL 2 MG/2 ML SINGLE DOSE VIAL ONE (07:48)
[2023-02-26] MEDS ORDERED: ROCURONIUM BROMIDE 50 MG/5 ML SYRINGE ONE (07:48)
[2023-02-26] MEDS ORDERED: ceFAZolin SODIUM 1 GM VIAL IVPB ONE (08:10)
[2023-02-26] MEDS ORDERED: BUPIVACAINE HCL/PF 0.5% (5MG/ML) 10 ML VIAL IJ ONE (08:18)
[2023-02-26] MEDS ORDERED: ONDANSETRON 4 MG/2 ML VIAL IVPUSH PRN (09:28)
[2023-02-26] MEDS ORDERED: oxyCODONE HCL 5 MG TABLET PO PRN (09:28)
[2023-02-26] MEDS ORDERED: LACTATED RINGERS SOLUTION 1,000 ML IV SCH (09:30)
[2023-02-26] MEDS ORDERED: oxyCODONE HCL 5 MG TABLET ONE (10:21)
[2023-02-26 12:50] VITALS: BP 115/53; PULSE 77; RESP 20; TEMP 97.5
== END 2023-02-26 11:20 | disposition home or self-care (01) ==
LOC: JASU-SURG 04:08
PROVIDERS: ATTEND Surgery
PROC: 0JB80ZZ Excision of Abdomen Subcutaneous Tissue and Fascia, Open Approach (ICD-10-PCS; principal; 2023-02-26 08:00)
DX: D21.4 Benign neoplasm of connective and other soft tissue of abdomen (principal)
CPT/HCPCS: 81025; 88305-TC; 88342-TC; 94760